=== PATIENT | male | born 1950 | race Caucasian/White ===

== ENCOUNTER 2021-05-06 10:30 | Emergency (ER) | payer OTHER ==
[~2021-05-06] VITALS: Ht 177.8 cm; Wt 84.0 kg
[~2021-05-06 10:30] MED LIST: ALLOPURINOL300 MG PO; ASCORBIC ACD500 MG PO; ATENOLOL25 MG PO; DOXYCYCL HYC100 MG PO; FISH OIL1000 MG PO; GABAPENTIN300 MG PO; GABAPENTIN600 MG PO; LORTAB 1010 MG PO; LOSARTAN POT100 MG PO; MULTIVITAMI9 PO; NEURONTIN300 MG PO; OMEPRAZOLE20 MG PO; ORAZINC220 MG PO; PERCOCET 5/325M1 TAB PO; PREDNISONE5 MG PO; PRILOSEC20 MG/CAP PO; PROZAC10 MG PO; SIMVASTATIN40 MG PO; TH VITAMIN B OR; TRAZODONE50 MG PO; TYLENOL325 MG PO; VITAMIN D3400 UNIT PO; [UNRECOGNIZED DRUG - OTHER] PO
[2021-05-06] MEDS ORDERED: BACTRIM DS1 TAB PO (14:40)
[2021-05-06] MEDS ORDERED: KEFLEX500 MG PO (14:40)
[2021-05-06 15:28] VITALS: BP 110/70
== END 2021-05-06 15:38 | disposition home or self-care (01) | DRG 514 ==
LOC: ED 10:30
PROC: 0LQ83ZZ Repair Left Hand Tendon, Percutaneous Approach (ICD-10-PCS; principal; 2021-05-06)
DX: S66.321A Laceration of extensor muscle, fascia and tendon of left index finger at wrist and hand level, initial encounter (principal); S61.211A Laceration without foreign body of left index finger without damage to nail, initial encounter; I10 Essential (primary) hypertension; W27.0XXA Contact with workbench tool, initial encounter; Y93.H2 Activity, gardening and landscaping; Y92.007 Garden or yard of unspecified non-institutional (private) residence as the place of occurrence of the external cause